=== PATIENT | female | born 1990 | race Asian ===

== ENCOUNTER 2020-02-23 18:18 | Inpatient (IN) | payer OTHER, SELFPAY ==
[~2020-02-23] VITALS: Ht 157.5 cm; Wt 60.3 kg
[2020-02-23 18:18] VITALS: BP_SYST 147
[2020-02-23 19:13] LABS: MEAN CORPUSCULAR HGB CONC 35 % (32-36); PLATELET COUNT (AUTO) 114 K/uL (130-430)
[2020-02-23 19:19] LABS: BASOPHILS % (AUTO) 0.3 % (0.0-2.0); EOSINOPHILS % (AUTO) 0.3 % (0.0-4.0); LYMPHOCYTES % (AUTO) 39.9 % (20.5-51.5); MEAN CORPUSCULAR HEMOGLOBIN 37 pg (27-31); MEAN CORPUSCULAR VOLUME 106 fL (79.0-98.0); MONOCYTES # (AUTO) 0.8 K/uL (0.0-1.0); MONOCYTES % (AUTO) 10.2 % (1.7-9.3); NEUTROPHILS # (AUTO) 3.7 K/uL (1.8-7.7); NEUTROPHILS % (AUTO) 49.3 % (40.0-70.0); RED CELL DISTRIBUTION WIDTH 22.5 % (9.0-15.0); WHITE BLOOD COUNT (AUTO) 7.5 K/uL (4.8-10.8)
[2020-02-23 19:20] LABS: RED BLOOD CELL COUNT(AUTO) 1.27 MIL/uL (4.2-6.2)
[2020-02-23 19:24] LABS: HEMATOCRIT 13.4 % (36-48); HEMOGLOBIN 4.6 g/dL (12.0-16.0)
[2020-02-23] MEDS ORDERED: NACL 0.9% 1,000 ML IV ONE (19:45)
[2020-02-23 20:35] LABS: ALBUMIN 2.1 g/dL (3.4-4.8); CALCIUM 9.1 mg/dL (8.4-11.0); CREATININE 1.04 mg/dL (0.55-1.30); POTASSIUM 3.7 mmol/L (3.5-5.1); TOTAL BILIRUBIN 0.4 mg/dL (0.0-1.0)
[2020-02-23 20:59] LABS: INR 1.2 (0.8-1.2); PROTHROMBIN TIME 12.6 SECS (9.5-12.5)
[2020-02-23] MEDS ORDERED: PANTOPRAZOLE SODIUM 40 MG/VIAL (PROTONIX) IVP ONE (21:15)
[2020-02-23] MEDS ORDERED: HYDROcodone/ACETAMIN 5-325 MG TAB (NORCO/ VICODIN) PO PRN (22:30)
[2020-02-23] MEDS ORDERED: NALOXONE HCL 0.4 MG/ML AMP (NARCAN) IVP PRN (22:30)
[2020-02-23] MEDS: PANTOPRAZOLE SODIUM 40 MG/VIAL (PROTONIX) IVP SCH (22:45)
[2020-02-23 23:29] VITALS: BP_SYST 136
[2020-02-24 03:27] VITALS: BP_SYST 126
[2020-02-24 08:00] VITALS: BP_SYST 124
[2020-02-24] MEDS: FERROUS SULFATE 325 MG TABLET.DR PO SCH ×2 (09:41→21:34)
[2020-02-24] MEDS: MULTIVITAMINS TAB 1 TABLET PO SCH (09:41)
[2020-02-24] MEDS: PANTOPRAZOLE SODIUM 40 MG/VIAL (PROTONIX) IVP SCH ×2 (09:41→21:34)
[2020-02-24 10:59] LABS: BASOPHILS % (AUTO) 0.2 % (0.0-2.0); EOSINOPHILS % (AUTO) 0.7 % (0.0-4.0); LYMPHOCYTES # (AUTO) 2.2 K/uL (1.0-5.5); LYMPHOCYTES % (AUTO) 41.5 % (20.5-51.5); MEAN CORPUSCULAR HEMOGLOBIN 34 pg (27-31); MEAN CORPUSCULAR HGB CONC 34 % (32-36); MEAN CORPUSCULAR VOLUME 100 fL (79.0-98.0); MONOCYTES # (AUTO) 0.5 K/uL (0.0-1.0); MONOCYTES % (AUTO) 8.7 % (1.7-9.3); NEUTROPHILS # (AUTO) 2.6 K/uL (1.8-7.7); NEUTROPHILS % (AUTO) 48.9 % (40.0-70.0); PLATELET COUNT (AUTO) 105 K/uL (130-430); RED CELL DISTRIBUTION WIDTH 24.8 % (9.0-15.0); RETICULOCYTE COUNT 2.9 % (0.5-1.5); WHITE BLOOD COUNT (AUTO) 5.3 K/uL (4.8-10.8)
[2020-02-24 11:11] LABS: RED BLOOD CELL COUNT(AUTO) 1.74 MIL/uL (4.2-6.2)
[2020-02-24 11:13] LABS: HEMATOCRIT 17.4 % (36-48)
[2020-02-24 11:16] LABS: HEMOGLOBIN 5.9 g/dL (12.0-16.0)
[2020-02-24 12:22] LABS: ALBUMIN 1.9 g/dL (3.4-4.8); CREATININE 1.03 mg/dL (0.55-1.30); POTASSIUM 3.5 mmol/L (3.5-5.1); TOTAL BILIRUBIN 0.4 mg/dL (0.0-1.0)
[2020-02-24] MEDS ORDERED: BISACODYL 5 MG TABLET.DR (DULCOLAX) PO ONE (17:00)
[2020-02-24 17:46] LABS: MEAN CORPUSCULAR HEMOGLOBIN 33 pg (27-31); MEAN CORPUSCULAR HGB CONC 34 % (32-36); MEAN CORPUSCULAR VOLUME 97 fL (79.0-98.0); PLATELET COUNT (AUTO) 96 K/uL (130-430); RED BLOOD CELL COUNT(AUTO) 2.07 MIL/uL (4.2-6.2); WHITE BLOOD COUNT (AUTO) 4.9 K/uL (4.8-10.8)
[2020-02-24 17:58] VITALS: BP_SYST 118
[2020-02-24 18:01] LABS: HEMOGLOBIN 6.9 g/dL (12.0-16.0)
[2020-02-24 18:02] LABS: HEMATOCRIT 20.1 % (36-48)
[2020-02-24 18:05] LABS: TOTAL IRON BIND. CAPACITY 205 ug/dL (250-450)
[2020-02-24 20:20] VITALS: BP_SYST 126
[2020-02-24 22:26] LABS: ATYPICAL LYMPHOCYTES % 0 % (0-0); BAND % (MANUAL) 0 % (0-6); BASOPHILS % (MANUAL) 0 % (0-2); EOSINOPHILS % (MANUAL) 1 % (0-7); LYMPHOCYTES % (MANUAL) 48 % (20-46); MONOCYTES % (MANUAL) 13 % (0-11)
[2020-02-25] MEDS ORDERED: SIMETHICONE 40 MG/0.6 ML ML PO ONE (07:00)
[2020-02-25] MEDS ORDERED: MIDAZOLAM HCL 5 MG/ML VIAL (VERSED) IV ONE (07:00)
[2020-02-25] MEDS ORDERED: fentaNYL CITRATE/PF 100 MCG/2 ML AMP IVP ONE (07:00)
[2020-02-25] MEDS ORDERED: MIDAZOLAM HCL 5 MG/5 ML VIAL ONE (07:31)
[2020-02-25] MEDS ORDERED: SIMETHICONE 40 MG/0.6 ML ML ONE (07:31)
[2020-02-25] MEDS ORDERED: fentaNYL CITRATE/PF 100 MCG/2 ML AMP ONE (07:31)
[2020-02-25 08:00] VITALS: BP_SYST 118
[2020-02-25 08:23] LABS: BASOPHILS % (AUTO) 0.3 % (0.0-2.0); EOSINOPHILS % (AUTO) 0.7 % (0.0-4.0); LYMPHOCYTES # (AUTO) 1.8 K/uL (1.0-5.5); LYMPHOCYTES % (AUTO) 38.5 % (20.5-51.5); MEAN CORPUSCULAR HEMOGLOBIN 33 pg (27-31); MEAN CORPUSCULAR HGB CONC 34 % (32-36); MEAN CORPUSCULAR VOLUME 97 fL (79.0-98.0); MONOCYTES # (AUTO) 0.5 K/uL (0.0-1.0); NEUTROPHILS # (AUTO) 2.3 K/uL (1.8-7.7); NEUTROPHILS % (AUTO) 49.5 % (40.0-70.0); PLATELET COUNT (AUTO) 97 K/uL (130-430); RED CELL DISTRIBUTION WIDTH 22.9 % (9.0-15.0); WHITE BLOOD COUNT (AUTO) 4.6 K/uL (4.8-10.8)
[2020-02-25] MEDS ORDERED: MAGNESIUM CITRATE 300 ML ORAL SOLUTION PO ONE (08:30)
[2020-02-25] MEDS ORDERED: DIATR MEGLU/DIATRIZ SOD 30 ML SOLUTION PO ONE (08:36)
[2020-02-25] MEDS: PANTOPRAZOLE SODIUM 40 MG/VIAL (PROTONIX) IVP SCH ×2 (09:00→20:12)
[2020-02-25] MEDS: FERROUS SULFATE 325 MG TABLET.DR PO SCH ×2 (09:00→20:12)
[2020-02-25] MEDS: MULTIVITAMINS TAB 1 TABLET PO SCH (09:00)
[2020-02-25 09:09] LABS: HEMATOCRIT 20.4 % (36-48)
[2020-02-25 09:43] LABS: ALBUMIN 1.9 g/dL (3.4-4.8); CALCIUM 8.5 mg/dL (8.4-11.0); CREATININE 0.95 mg/dL (0.55-1.30); POTASSIUM 3.8 mmol/L (3.5-5.1); TOTAL BILIRUBIN 0.5 mg/dL (0.0-1.0)
[2020-02-25 12:00] VITALS: BP_SYST 126
[2020-02-25 19:00] VITALS: BP_SYST 121
[2020-02-25 20:00] VITALS: BP_SYST 121
[2020-02-25 22:39] LABS: PROTHROMBIN TIME 21.9 SECS (9.5-12.5)
[2020-02-26] VITALS: BP_SYST 116
[2020-02-26] MEDS: DIPHENHYDRAMINE HCL 50 MG CAPSULE PO PRN ×2 (01:54→05:31)
[2020-02-26 08:00] VITALS: BP_SYST 116
[2020-02-26 08:10] LABS: FOLATE (FOLIC ACID) >20.0 ng/mL (>3.0)
[2020-02-26] MEDS ORDERED: DIPHENHYDRAMINE INJ 50 MG/ML VIAL ONE (08:21)
[2020-02-26] MEDS: FERROUS SULFATE 325 MG TABLET.DR PO SCH ×2 (08:36→19:58)
[2020-02-26] MEDS: MULTIVITAMINS TAB 1 TABLET PO SCH (08:36)
[2020-02-26] MEDS: PANTOPRAZOLE SODIUM 40 MG/VIAL (PROTONIX) IVP SCH ×2 (08:36→19:58)
[2020-02-26 08:47] LABS: BASOPHILS % (AUTO) 0.4 % (0.0-2.0); EOSINOPHILS % (AUTO) 0.6 % (0.0-4.0); LYMPHOCYTES # (AUTO) 2.2 K/uL (1.0-5.5); LYMPHOCYTES % (AUTO) 40.9 % (20.5-51.5); MEAN CORPUSCULAR HEMOGLOBIN 34 pg (27-31); MEAN CORPUSCULAR HGB CONC 35 % (32-36); MEAN CORPUSCULAR VOLUME 98 fL (79.0-98.0); MONOCYTES # (AUTO) 0.6 K/uL (0.0-1.0); MONOCYTES % (AUTO) 10.6 % (1.7-9.3); NEUTROPHILS # (AUTO) 2.5 K/uL (1.8-7.7); NEUTROPHILS % (AUTO) 47.5 % (40.0-70.0); PLATELET COUNT (AUTO) 92 K/uL (130-430); RED CELL DISTRIBUTION WIDTH 22.3 % (9.0-15.0); WHITE BLOOD COUNT (AUTO) 5.4 K/uL (4.8-10.8)
[2020-02-26 09:29] LABS: RED BLOOD CELL COUNT(AUTO) 1.88 MIL/uL (4.2-6.2)
[2020-02-26 09:33] LABS: HEMATOCRIT 18.5 % (36-48); HEMOGLOBIN 6.4 g/dL (12.0-16.0)
[2020-02-26 12:00] VITALS: BP_SYST 118
[2020-02-26 17:03] VITALS: BP_SYST 136
[2020-02-26 20:00] VITALS: BP_SYST 138
[2020-02-26 23:46] LABS: BASOPHILS % (AUTO) 0.2 % (0.0-2.0); EOSINOPHILS % (AUTO) 0.7 % (0.0-4.0); HEMOGLOBIN 7.6 g/dL (12.0-16.0); LYMPHOCYTES # (AUTO) 1.9 K/uL (1.0-5.5); LYMPHOCYTES % (AUTO) 36.4 % (20.5-51.5); MEAN CORPUSCULAR HEMOGLOBIN 33 pg (27-31); MEAN CORPUSCULAR HGB CONC 35 % (32-36); MEAN CORPUSCULAR VOLUME 95 fL (79.0-98.0); MONOCYTES # (AUTO) 0.6 K/uL (0.0-1.0); MONOCYTES % (AUTO) 10.8 % (1.7-9.3); NEUTROPHILS # (AUTO) 2.7 K/uL (1.8-7.7); NEUTROPHILS % (AUTO) 51.9 % (40.0-70.0); PLATELET COUNT (AUTO) 93 K/uL (130-430); RED CELL DISTRIBUTION WIDTH 21.2 % (9.0-15.0); WHITE BLOOD COUNT (AUTO) 5.3 K/uL (4.8-10.8)
[2020-02-26 23:50] LABS: HEMATOCRIT 21.8 % (36-48)
[2020-02-27] VITALS: BP_SYST 132
[2020-02-27 07:41] VITALS: BP_SYST 122
[2020-02-27] MEDS: PANTOPRAZOLE SODIUM 40 MG/VIAL (PROTONIX) IVP SCH (08:07)
[2020-02-27] MEDS: MULTIVITAMINS TAB 1 TABLET PO SCH (08:07)
[2020-02-27] MEDS: FERROUS SULFATE 325 MG TABLET.DR PO SCH (08:07)
[2020-02-27 09:32] VITALS: BP_SYST 132
[2020-02-28 15:34] LABS: HAPTOGLOBIN <10 mg/dL (33-278)
== END 2020-02-27 11:30 | disposition home or self-care (01) | DRG 811 ==
LOC: SED 18:18 → STU 21:32
PROVIDERS: ADMIT Internal Medicine Hospice and Palliative Medicine; ATTEND Internal Medicine Hospice and Palliative Medicine
PROC: 30233N1 Transfusion of Nonautologous Red Blood Cells into Peripheral Vein, Percutaneous Approach (ICD-10-PCS; 2020-02-24)
PROC: 0DB68ZX Excision of Stomach, Via Natural or Artificial Opening Endoscopic, Diagnostic (ICD-10-PCS; principal; 2020-02-25 10:30)
PROC: 0DBN8ZZ Excision of Sigmoid Colon, Via Natural or Artificial Opening Endoscopic (ICD-10-PCS; 2020-02-25 10:30)
DX: D53.9 Nutritional anemia, unspecified (principal); K29.71 Gastritis, unspecified, with bleeding; D69.6 Thrombocytopenia, unspecified; K63.5 Polyp of colon; E77.8 Other disorders of glycoprotein metabolism; L98.9 Disorder of the skin and subcutaneous tissue, unspecified; Z20.828 Contact with and (suspected) exposure to other viral communicable diseases; K64.8 Other hemorrhoids; Z82.49 Family history of ischemic heart disease and other diseases of the circulatory system; Z80.3 Family history of malignant neoplasm of breast; Z83.2 Family history of diseases of the blood and blood-forming organs and certain disorders involving the immune mechanism
CPT/HCPCS: 36415; 36430; 43239; 45380; 71045; 71260-TC; 76376; 76830-TC; 76857; 80053; 82607; 82746; 83010; 83540-TC; 83550-TC; 83615-TC; 84155; 84165; 84703; 85007; 85025; 85027; 85044-TC; 85610-TC; 85651-TC; 85730-TC; 86140; 86886; 86900; 86901; 86920; 87081; 88305; 88312; 88313; 96374; 99291; 99292; C9113; G0378; J1200; J2250; J3010; J7040; J7050; P9021; Q0163; Q9964; Q9967

== ENCOUNTER 2020-03-08 00:49 | Emergency (ER) | payer OTHER, SELFPAY ==
[~2020-03-08] VITALS: Ht 157.5 cm; Wt 59.4 kg
[2020-03-08 00:49] VITALS: BP_SYST 135
[2020-03-08 03:50] LABS: BASOPHILS % (AUTO) 0.4 % (0.0-2.0); EOSINOPHILS # (AUTO) 0.1 K/uL (0.0-0.4); EOSINOPHILS % (AUTO) 0.7 % (0.0-4.0); HEMATOCRIT 24.1 % (36-48); HEMOGLOBIN 7.9 g/dL (12.0-16.0); LYMPHOCYTES # (AUTO) 2.6 K/uL (1.0-5.5); LYMPHOCYTES % (AUTO) 37.7 % (20.5-51.5); MEAN CORPUSCULAR HEMOGLOBIN 32 pg (27-31); MEAN CORPUSCULAR HGB CONC 33 % (32-36); MEAN CORPUSCULAR VOLUME 99 fL (79.0-98.0); MONOCYTES # (AUTO) 0.8 K/uL (0.0-1.0); MONOCYTES % (AUTO) 11.2 % (1.7-9.3); NEUTROPHILS # (AUTO) 3.5 K/uL (1.8-7.7); RED CELL DISTRIBUTION WIDTH 20.8 % (9.0-15.0)
[2020-03-08 04:28] VITALS: BP_SYST 132
[2020-03-08 10:59] LABS: RED BLOOD CELL COUNT(AUTO) 2.45 MIL/uL (4.2-6.2)
[2020-03-08 11:03] LABS: PLATELET COUNT (AUTO) 87 K/uL (130-430)
== END 2020-03-08 04:28 | disposition home or self-care (01) ==
LOC: SED 00:49
DX: D64.9 Anemia, unspecified (principal); D69.42 Congenital and hereditary thrombocytopenia purpura; R04.0 Epistaxis
CPT/HCPCS: 36415; 85025; 99283

== ENCOUNTER 2020-03-16 23:34 | Inpatient (IN) | payer OTHER, SELFPAY ==
[~2020-03-16] VITALS: Ht 157.5 cm; Wt 59.0 kg
[2020-03-17] VITALS (10 sets, daily range): BP systolic 105–128
[2020-03-17 01:21] LABS: MEAN CORPUSCULAR HEMOGLOBIN 34 pg (27-31); MEAN CORPUSCULAR HGB CONC 34 % (32-36); MEAN CORPUSCULAR VOLUME 100 fL (79.0-98.0); PLATELET COUNT (AUTO) 89 K/uL (130-430); RED CELL DISTRIBUTION WIDTH 21.7 % (9.0-15.0); WHITE BLOOD COUNT (AUTO) 8.9 K/uL (4.8-10.8)
[2020-03-17 01:51] LABS: HEMOGLOBIN 3.8 g/dL (12.0-16.0)
[2020-03-17 01:52] LABS: ATYPICAL LYMPHOCYTES % 2 % (0-0); BAND % (MANUAL) 0 % (0-6); BASOPHILS % (MANUAL) 0 % (0-2); EOSINOPHILS % (MANUAL) 0 % (0-7); LYMPHOCYTES % (MANUAL) 56 % (20-46); METAMYELOCYTES % 0 % (0-0); MONOCYTES % (MANUAL) 9 % (0-11); MYELOCYTES % 1 % (0-0)
[2020-03-17 02:04] LABS: CALCIUM 7.2 mg/dL (8.4-11.0); CREATININE 1.17 mg/dL (0.55-1.30); POTASSIUM 3.6 mmol/L (3.5-5.1)
[2020-03-17 02:18] LABS: ALBUMIN 1.8 g/dL (3.4-4.8); TOTAL BILIRUBIN 0.2 mg/dL (0.0-1.0)
[2020-03-17] MEDS: NORMAL SALINE 5 ML DISP.SYRIN IVF SCH ×5 (05:59→22:22)
[2020-03-17] MEDS ORDERED: ONDANSETRON HCL 4 MG/2 ML VIAL IVP PRN (13:15)
[2020-03-17] MEDS ORDERED: NALOXONE HCL 0.4 MG/ML AMP (NARCAN) IVP PRN ×2 (13:15)
[2020-03-17] MEDS ORDERED: ACETAMINOPHEN 325 MG TABLET PO PRN (13:15)
[2020-03-17] MEDS ORDERED: LORazepam 2 MG/ML VIAL IVP PRN (13:15)
[2020-03-17] MEDS ORDERED: HYDROcodone/ACETAMIN 10-325 MG TAB PO PRN (13:15)
[2020-03-17] MEDS: HYDROcodone/ACETAMIN 5-325 MG TAB (NORCO/ VICODIN) PO PRN (22:37)
[2020-03-18] VITALS (7 sets, daily range): BP systolic 115–129
[2020-03-18] MEDS: NORMAL SALINE 5 ML DISP.SYRIN IVF SCH ×6 (05:56→21:30)
[2020-03-18 09:01] LABS: ALBUMIN 1.9 g/dL (3.4-4.8); CALCIUM 8.7 mg/dL (8.4-11.0); CREATININE 0.92 mg/dL (0.55-1.30); POTASSIUM 4.2 mmol/L (3.5-5.1); TOTAL BILIRUBIN 0.6 mg/dL (0.0-1.0)
[2020-03-18 09:01] LABS: BASOPHILS % (AUTO) 0.5 % (0.0-2.0); EOSINOPHILS % (AUTO) 0.7 % (0.0-4.0); LYMPHOCYTES # (AUTO) 1.8 K/uL (1.0-5.5); LYMPHOCYTES % (AUTO) 34.5 % (20.5-51.5); MEAN CORPUSCULAR HEMOGLOBIN 33 pg (27-31); MEAN CORPUSCULAR HGB CONC 35 % (32-36); MEAN CORPUSCULAR VOLUME 95 fL (79.0-98.0); MONOCYTES # (AUTO) 0.5 K/uL (0.0-1.0); MONOCYTES % (AUTO) 9.1 % (1.7-9.3); NEUTROPHILS # (AUTO) 2.9 K/uL (1.8-7.7); NEUTROPHILS % (AUTO) 55.2 % (40.0-70.0); PLATELET COUNT (AUTO) 68 K/uL (130-430); RED BLOOD CELL COUNT(AUTO) 2.03 MIL/uL (4.2-6.2); RED CELL DISTRIBUTION WIDTH 15.2 % (9.0-15.0); RETICULOCYTE COUNT 2.5 % (0.5-1.5); WHITE BLOOD COUNT (AUTO) 5.3 K/uL (4.8-10.8)
[2020-03-18 09:14] LABS: HEMATOCRIT 19.3 % (36-48); HEMOGLOBIN 6.7 g/dL (12.0-16.0)
[2020-03-18] MEDS: HYDROcodone/ACETAMIN 5-325 MG TAB (NORCO/ VICODIN) PO PRN (21:24)
[2020-03-19] MEDS: NORMAL SALINE 5 ML DISP.SYRIN IVF SCH ×4 (06:00→15:07)
[2020-03-19 06:02] VITALS: BP_SYST 115
[2020-03-19 07:46] LABS: BASOPHILS % (AUTO) 0.4 % (0.0-2.0); EOSINOPHILS # (AUTO) 0.1 K/uL (0.0-0.4); EOSINOPHILS % (AUTO) 0.9 % (0.0-4.0); HEMATOCRIT 21.6 % (36-48); HEMOGLOBIN 7.6 g/dL (12.0-16.0); LYMPHOCYTES # (AUTO) 2.3 K/uL (1.0-5.5); LYMPHOCYTES % (AUTO) 40.2 % (20.5-51.5); MEAN CORPUSCULAR HEMOGLOBIN 33 pg (27-31); MEAN CORPUSCULAR HGB CONC 35 % (32-36); MEAN CORPUSCULAR VOLUME 93 fL (79.0-98.0); MONOCYTES # (AUTO) 0.6 K/uL (0.0-1.0); MONOCYTES % (AUTO) 10.4 % (1.7-9.3); NEUTROPHILS # (AUTO) 2.8 K/uL (1.8-7.7); NEUTROPHILS % (AUTO) 48.1 % (40.0-70.0); PLATELET COUNT (AUTO) 65 K/uL (130-430); RED BLOOD CELL COUNT(AUTO) 2.33 MIL/uL (4.2-6.2); RED CELL DISTRIBUTION WIDTH 16.4 % (9.0-15.0); WHITE BLOOD COUNT (AUTO) 5.7 K/uL (4.8-10.8)
[2020-03-19 08:30] VITALS: BP_SYST 119
[2020-03-19] MEDS: HYDROcodone/ACETAMIN 5-325 MG TAB (NORCO/ VICODIN) PO PRN ×2 (08:35→16:36)
[2020-03-19 08:45] LABS: CALCIUM 8.2 mg/dL (8.4-11.0); CREATININE 0.93 mg/dL (0.55-1.30); POTASSIUM 4.1 mmol/L (3.5-5.1)
[2020-03-19 12:00] VITALS: BP_SYST 120
[2020-03-19] MEDS ORDERED: FERR236T3 PO (14:09)
[2020-03-19] MEDS ORDERED: MEDR10TA3 PO (14:09)
[2020-03-19 16:00] VITALS: BP_SYST 128
[2020-03-19 17:02] VITALS: BP_SYST 128
== END 2020-03-19 19:04 | disposition home or self-care (01) | DRG 812 ==
LOC: SED 23:34 → STU 03-17 04:38
PROVIDERS: ADMIT Preventive Medicine Preventive Medicine/Occupational Environmental Medicine; ATTEND Preventive Medicine Preventive Medicine/Occupational Environmental Medicine
PROC: 30233N1 Transfusion of Nonautologous Red Blood Cells into Peripheral Vein, Percutaneous Approach (ICD-10-PCS; principal; 2020-03-17)
DX: D53.9 Nutritional anemia, unspecified (principal); E87.1 Hypo-osmolality and hyponatremia; C90.00 Multiple myeloma not having achieved remission; D69.6 Thrombocytopenia, unspecified; E83.51 Hypocalcemia; E88.09 Other disorders of plasma-protein metabolism, not elsewhere classified; N92.6 Irregular menstruation, unspecified; Z20.822 Contact with and (suspected) exposure to COVID-19
CPT/HCPCS: 36415; 36430; 80048; 80053; 82232; 82728; 82784; 82785; 83615-TC; 83690-TC; 85007; 85025; 85027; 85044-TC; 86886; 86900; 86901; 86920; 87081; 99285; G0378; J7030; J7050; P9021